=== PATIENT | female | born 1935 | race Caucasian/White ===

== ENCOUNTER 2020-09-28 19:06 | Emergency (ER) | payer MEDICARE, OTHER ==
[~2020-09-28] VITALS: Ht 157.5 cm; Wt 61.0 kg
[2020-09-28 20:09] LABS: HEMATOCRIT 39.7 % (37.0-47.0); HEMOGLOBIN 12.8 g/dl (12.0-16.0); IMMATURE GRANULOCYTES 0.5 % (0.0-5.0); MEAN CELL VOLUME 91.5 fL CALC (80.0-100.0); MEAN CORPUSCULAR HGB 29.5 pG CALC (26.0-32.0); MEAN CORPUSCULAR HGB CONC 32.2 g/dL CAL (32.0-36.0); NEUT# 11.94 thou/uL (2.00-7.15); RED BLOOD COUNT 4.34 mill/uL (4.20-5.60); RED CELL DISTRI WIDTH 13.2 % (11.5-15.5)
[2020-09-28 21:13] LABS: ALBUMIN 3.4 g/dL (3.2-5.0); ALKALINE PHOSPHATASE 93 u/l (38-126); AMYLASE 59 u/l (30-110); BILIRUBIN, TOTAL 0.7 mg/dL (0.0-1.4); BUN 9 mg/dL (8-23); BUN/CREATININE RATIO 11 (12-20 (CALC)); CARBON DIOXIDE 27 mmol/l (22-30); CHLORIDE 97 mmol/l (95-108); CREATININE 0.9 mg/dL (0.5-1.0); GFR 60 ML/MIN (>=60 (CALC)); GFR FOR AFR.AMER. > 60 ML/MIN (>=60 (CALC)); LIPASE 31 u/l (23-300); SGOT/AST 29 u/l (9-36); TOTAL PROTEIN 6.4 g/dL (6.3-8.2)
[2020-09-28 21:14] LABS: D-DIMER 0.8 mg/L (0.19-0.60)
[2020-09-28 21:19] LABS: ACT PARTIAL THROMBO TIME 25.2 SECONDS (20.0-32.5); INTERNATIONAL NORMALIZED RATIO 1.1 RATIO (0.7-1.3); PROTHROMBIN TIME 10.6 SECONDS (9.0-12.5)
[2020-09-28 21:25] LABS: MYOGLOBIN 84 ng/mL (0 - 62)
[2020-09-28 21:30] LABS: ANION GAP 9 (6-22 (CALC)); POTASSIUM 3.8 mmol/l (3.5-5.1); SODIUM 129 mmol/l (137-146)
[2020-09-29 00:59] LABS: URINE BILIRUBIN - DIPSTICK NEGATIVE (NEGATIVE); URINE BLOOD DIPSTICK LARGE (NEGATIVE); URINE COLOR BROWN; URINE GLUCOSE - DIPSTICK NEGATIVE (NEGATIVE); URINE KETONE NEGATIVE (NEGATIVE); URINE NITRITE - DIPSTICK NEGATIVE (Negative); URINE PROTEIN - DIPSTICK 100 mg/dL (NEG-TRACE); URINE SPECIFIC GRAVITY 1.015; URINE UROBILINOGEN - DIPSTICK 0.2 E.U./dL (0.2)
[2020-09-29 01:01] LABS: URINE LEUK ESTERASE MODERATE (NEGATIVE)
[2020-09-29 01:27] LABS: URINE BACTERIA MANY hpf; URINE RBC 25-50 RBC/hpf (0-5); URINE SQUAMOUS EPITHELIAL CELL FEW EPI/hpf (0-FEW); URINE WBC 50-100 WBC/hpf (0-5)
[2020-09-29 03:23] VITALS: BP 101/63
== END 2020-09-29 03:22 | disposition short-term general hospital (02) ==
LOC: ED 19:06
PROVIDERS: Family Medicine
DX: R07.9 Chest pain, unspecified (principal); R79.89 Other specified abnormal findings of blood chemistry; E03.9 Hypothyroidism, unspecified; Z20.828 Contact with and (suspected) exposure to other viral communicable diseases
CPT/HCPCS: Q9967

== ENCOUNTER 2020-10-04 11:36 | Emergency (ER) | payer MEDICARE, OTHER ==
[~2020-10-04] VITALS: Ht 157.5 cm; Wt 61.0 kg
[2020-10-04] MEDS ORDERED: ASPIRIN ADULT L81 MG PO (11:45)
[2020-10-04] MEDS ORDERED: LIPITOR40 M1 PO (11:46)
[2020-10-04] MEDS ORDERED: CARVEDILOL3.125 MG PO (11:46)
[2020-10-04] MEDS ORDERED: BACTRIM DS1 TAB PO (11:47)
[2020-10-04] MEDS ORDERED: BRILINTA90 MG PO (11:47)
[2020-10-04] MEDS ORDERED: LEVOTHYROXIN125 MCG PO (11:47)
[2020-10-04 12:29] LABS: HEMATOCRIT 34.4 % (37.0-47.0); HEMOGLOBIN 10.9 g/dl (12.0-16.0); IMMATURE GRANULOCYTES 0.9 % (0.0-5.0); MEAN CELL VOLUME 90.3 fL CALC (80.0-100.0); MEAN CORPUSCULAR HGB 28.6 pG CALC (26.0-32.0); MEAN CORPUSCULAR HGB CONC 31.7 g/dL CAL (32.0-36.0); NEUT# 11.35 thou/uL (2.00-7.15); RED BLOOD COUNT 3.81 mill/uL (4.20-5.60); RED CELL DISTRI WIDTH 13.2 % (11.5-15.5)
[2020-10-04 12:31] LABS: ALBUMIN 3.4 g/dL (3.2-5.0); POTASSIUM 4.3 mmol/l (3.5-5.1); TOTAL PROTEIN 6.2 g/dL (6.3-8.2)
[2020-10-04 12:33] LABS: BILIRUBIN, TOTAL 0.4 mg/dL (0.0-1.4); CREATININE 2.1 mg/dL (0.5-1.0)
[2020-10-04 12:57] LABS: INTERNATIONAL NORMALIZED RATIO 1.1 RATIO (0.7-1.3); PROTHROMBIN TIME 10.9 SECONDS (9.0-12.5)
[2020-10-04 13:21] LABS: URINE BLOOD DIPSTICK LARGE (NEGATIVE); URINE GLUCOSE - DIPSTICK NEGATIVE (NEGATIVE); URINE KETONE TRACE mg/dL (NEGATIVE); URINE PH 7.5 (4.5-8.0); URINE PROTEIN - DIPSTICK 100 mg/dL (NEG-TRACE); URINE SPECIFIC GRAVITY 1.025; URINE UROBILINOGEN - DIPSTICK 0.2 E.U./dL (0.2)
[2020-10-04 13:22] LABS: URINE BILIRUBIN - DIPSTICK MODERATE (NEGATIVE); URINE COLOR BROWN; URINE LEUK ESTERASE MODERATE (NEGATIVE); URINE NITRITE - DIPSTICK POSITIVE (Negative); URINE RBC TNTC RBC/hpf (0-5)
[2020-10-04 13:23] LABS: URINE BACTERIA FEW hpf; URINE EPITHELIAL CELLS FEW EPI/hpf (0-FEW)
[2020-10-04 14:40] VITALS: BP 109/51
== END 2020-10-04 15:03 | disposition short-term general hospital (02) ==
LOC: ED 11:36
PROVIDERS: Family Medicine
DX: R31.9 Hematuria, unspecified (principal); N17.9 Acute kidney failure, unspecified; I25.10 Atherosclerotic heart disease of native coronary artery without angina pectoris; E03.9 Hypothyroidism, unspecified; I25.2 Old myocardial infarction; Z95.5 Presence of coronary angioplasty implant and graft; Z87.440 Personal history of urinary (tract) infections; Z79.02 Long term (current) use of antithrombotics/antiplatelets

== ENCOUNTER 2020-11-25 07:46 | Observation (INO) | payer MEDICARE, OTHER ==
[~2020-11-25] VITALS: Ht 157.5 cm; Wt 60.1 kg
[~2020-11-25 07:46] MED LIST: ASPIRIN ADULT L81 MG PO; BACTRIM DS1 TAB PO; BRILINTA90 MG PO; CARVEDILOL3.125 MG PO; LEVOTHYROXIN125 MCG PO; LIPITOR40 M1 PO
--- NOTE | 2020-11-25 07:47 | NUR ---
PT TO ROOM 13 VIA WC. ABLE TO STAND AND TRANSFER SELF TO STRETCHER.
[2020-11-25] MEDS ORDERED: TRAZODONE50 MG PO (08:13)
--- NOTE | 2020-11-25 08:23 | NUR ---
REGISTRATION AT BEDSIDE PT RESTING ON STRETCHER, NO COMPLAINTS OF PAIN, CALL [facility] WITHIN REACH. DAUGHTER AT BEDSIDE.
[2020-11-25 08:30] LABS: HEMATOCRIT 33.6 % (37.0-47.0); HEMOGLOBIN 10.6 g/dl (12.0-16.0); IMMATURE GRANULOCYTES 0.5 % (0.0-5.0); MEAN CELL VOLUME 92.6 fL CALC (80.0-100.0); MEAN CORPUSCULAR HGB 29.2 pG CALC (26.0-32.0); MEAN CORPUSCULAR HGB CONC 31.5 g/dL CAL (32.0-36.0); NEUT# 10.82 thou/uL (2.00-7.15); RED BLOOD COUNT 3.63 mill/uL (4.20-5.60); RED CELL DISTRI WIDTH 14.6 % (11.5-15.5)
[2020-11-25 08:44] LABS: ALBUMIN 2.8 g/dL (3.2-5.0); ALKALINE PHOSPHATASE 111 u/l (38-126); ANION GAP 8 (6-22 (CALC)); BUN 14 mg/dL (8-23); CARBON DIOXIDE 27 mmol/l (22-30); CHLORIDE 101 mmol/l (95-108); LIPASE 27 u/l (23-300); POTASSIUM 3.8 mmol/l (3.5-5.1); SGOT/AST 24 u/l (9-36); SODIUM 133 mmol/l (137-146); TOTAL PROTEIN 5.8 g/dL (6.3-8.2)
[2020-11-25 08:48] LABS: BILIRUBIN, TOTAL 0.7 mg/dL (0.0-1.4); BUN/CREATININE RATIO 20 (12-20 (CALC)); CREATININE 0.7 mg/dL (0.5-1.0); GFR > 60 ML/MIN (>=60 (CALC)); GFR FOR AFR.AMER. > 60 ML/MIN (>=60 (CALC))
[2020-11-25 08:56] LABS: ACT PARTIAL THROMBO TIME 23.6 SECONDS (20.0-32.5); PROTHROMBIN TIME 10.4 SECONDS (9.0-12.5)
--- NOTE | 2020-11-25 08:58 | NUR ---
PT RESTING DECLINES ANY NEEDS AT THIS TIME, AWARE OF AWAITING LAB RESULTS ETC...DAUGHTER REMAINS AT BEDSIDE, CALL [facility] WITHIN REACH.
--- NOTE | 2020-11-25 10:36 | NUR ---
PATIENT RESTING QUIETLY. NO DISTRESS. DAUGHTER AT BEDSIDE. CALL [facility] IN REACH
[2020-11-25 11:10] LABS: URINE BILIRUBIN - DIPSTICK NEGATIVE (NEGATIVE); URINE BLOOD DIPSTICK LARGE (NEGATIVE); URINE COLOR YELLOW; URINE GLUCOSE - DIPSTICK NEGATIVE (NEGATIVE); URINE KETONE TRACE mg/dL (NEGATIVE); URINE LEUK ESTERASE SMALL (NEGATIVE); URINE NITRITE - DIPSTICK NEGATIVE (Negative); URINE PH 7.5 (4.5-8.0); URINE PROTEIN - DIPSTICK 30 mg/dL (NEG-TRACE); URINE UROBILINOGEN - DIPSTICK 0.2 E.U./dL (0.2); URINE WBC 20-50 WBC/hpf (0-5)
[2020-11-25 11:11] LABS: URINE BACTERIA MODERATE hpf; URINE EPITHELIAL CELLS MODERATE EPI/hpf (0-FEW)
--- NOTE | 2020-11-25 11:30 | NUR ---
physician to bedside to discuss results and admission.
[2020-11-25 12:23] LABS: TSH, 3RD GENERATION 0.14 uIU/mL (0.47 - 4.68)
--- NOTE | 2020-11-25 12:34 | NUR ---
patient awaiting room . No distress.
--- NOTE | 2020-11-25 12:51 | NUR ---
report in sbar format to loren lunsford.
--- NOTE | 2020-11-25 12:57 | NUR ---
PT ARRIVED VIA WC ACCOMPANIED BY Mary RUEDA RN. A&O X3. NO DISTRESS NOTED. PT DENIES ANY PAIN OR SOB AT THIS TIME. CURRENTLY 94-95% VIA RA, WILL CONTINUE TO MONITOR FOR SUPPLEMENTAL O2 NEEDS. #20 LAC HEALTHY AND INTACT, FLUSHED WITH EASE. CONSOLE ASSEMBLER IN PLACE #8621 WITH INITIAL READING AT SR 87 PER ED MONITORING. [facility] OFFERED BUT REFUSED. PT INSTRUCTED TO CALL WHEN AMBULATING TO BATHROOM FOR FALL PERCAUTIONS. UPPER DENTURES IN PLACES REPORTED BY PATIENT. ASSESSMENT COMPLETED. ORIENTED PT TO ROOM. DISCUSSED POC. CALL LIGHT LEFT WITHIN REACH.
--- NOTE | 2020-11-25 13:02 | NUR ---
to room 270 via wc. stable upon arrival. iv intact
[2020-11-25 15:00] VITALS: BP 102/46
--- NOTE | 2020-11-25 15:53 | NUR ---
PT screen Patient is screened for rehab intervention and no needs are identified at this time
--- NOTE | 2020-11-25 16:13 | NUR ---
PT CONSENTED TO [facility] BUT HAS HAD BOTH SINCE AGE 67, NO FDURTHER [facility] INDICATED. JOAO AWARE
--- NOTE | 2020-11-25 17:17 | NUR ---
PT C/O OF LAW. TYLENOL GIVEN. WILL REASSESS.
[2020-11-25 20:00] VITALS: BP 98/58
--- NOTE | 2020-11-25 20:00 | NUR ---
PT APPEARS TO BE SLEEPING, EASY TO AROUSE. NO COMPLAINTS OF DISCOMFORT OR PAIN. CURRENTLY NO EDEMA ASSESSED, LUNGS ARE CLEAR IN ALL [place]. ONLY COMPLAINT IS THAT SHE IS READY TO GO HOME. NURSE ASSURED HER THAT THE DOCTOR WANTS TO MAKE SURE SHE IS WELL ENOUGH TO GO HOME AND THEY WOULD MAKE THAT DECISION IN THE MORNING. PT WAS SATISFIED WITH THE INFORMATION AND WENT BACK TO SLEEP. CALL LIGHT AND BELONGINGS WITHIN REACH.
[2020-11-26] VITALS: BP 105/61
--- NOTE | 2020-11-26 | NUR ---
NURSE WENT TO CHECK ON PT AND SHE WAS AWAKE. PT STATED SHE WAS READY TO GO HOME, NURSE EDUCATED HER THAT IT IS THE MIDDLE OF THE NIGHT AND THE DOCTOR WOULD BE HERE IN THE MORNING. PT HAD COMPLAINT OF ITCHING, OFFERED HER SOME LOTION HER SKIN LOOKED VERY DRY, POSSIBLY DUE TO DIURETICS. AT FIRST SHE DECLINED AND SHORT TIME LATER SHE COMPLAINED AGAIN TO JIVE DEVELOPER, NURSE WENT AND OFFERED AGAIN. SHE AGREED AND NURSE HELPED PUT SOME ON HER ARMS AND LEGS. SHE SEEMS CONTENT, WILL CHECK HER LATER IF RESOLVED.
[2020-11-26 03:45] VITALS: BP 88/48; BP 99/63
--- NOTE | 2020-11-26 04:00 | NUR ---
PT RESTING ON HER SIDE WITH EYES CLOSED APPEARS TO BE SLEEPING. WHEN AWAKENED TO ASK HOW SHE IS FEELING, SHE ONLY COMMENTS "I WOULD BE BETTER IF I WAS HOME." DENIES DISCOMFORT OR SOB. WILL CONTINUE TO MONITOR.
[2020-11-26 05:14] LABS: HEMATOCRIT 37.3 % (37.0-47.0); HEMOGLOBIN 11.8 g/dl (12.0-16.0); IMMATURE GRANULOCYTES 0.5 % (0.0-5.0); MEAN CELL VOLUME 91.4 fL CALC (80.0-100.0); MEAN CORPUSCULAR HGB 28.9 pG CALC (26.0-32.0); MEAN CORPUSCULAR HGB CONC 31.6 g/dL CAL (32.0-36.0); NEUT# 12.52 thou/uL (2.00-7.15); RED BLOOD COUNT 4.08 mill/uL (4.20-5.60); RED CELL DISTRI WIDTH 14.8 % (11.5-15.5)
[2020-11-26 05:45] LABS: ALBUMIN 2.6 g/dL (3.2-5.0); ALKALINE PHOSPHATASE 111 u/l (38-126); ANION GAP 11 (6-22 (CALC)); BUN 14 mg/dL (8-23); BUN/CREATININE RATIO 18 (12-20 (CALC)); CALCULATED LDLCHOLESTEROL 33 mg/dL (62-129 (CALC)); CARBON DIOXIDE 27 mmol/l (22-30); CHLORIDE 98 mmol/l (95-108); CHOLESTEROL HDL RATIO 2.4 (<4.4 (CALC)); CREATININE 0.8 mg/dL (0.5-1.0); GFR > 60 ML/MIN (>=60 (CALC)); GFR FOR AFR.AMER. > 60 ML/MIN (>=60 (CALC)); HDL CHOLESTEROL 36 mg/dL (>=40); MAGNESIUM 1.9 mg/dL (1.6-2.3); POTASSIUM 3.5 mmol/l (3.5-5.1); SGOT/AST 22 u/l (9-36); SODIUM 133 mmol/l (137-146); TOTAL PROTEIN 5.5 g/dL (6.3-8.2); TOTAL TRIGLYCERIDES 91 mg/dl (30-149); VLDL CHOLESTROL 18 mg/dl (0-48 (CALC))
[2020-11-26 05:46] LABS: TOTAL CHOLESTEROL 87 mg/dl (0-199)
[2020-11-26 07:37] VITALS: BP 102/63
--- NOTE | 2020-11-26 07:37 | NUR ---
PATIENT SITTING UP AT BEDSIDE STATING "I WANT TO GO HOME TODAY I AM FINE". PATIENT IS ALERT AND ORIENTED X 3 CALL LIGHT NEAR AND SIDERAILS UP X 2. PATIENT AIR TESTER DONE AT THIS TIME SEE INTERVENTIONS. NO SIGNS OF EDEMA NOTED ON BODY AT THIS TIME. PATIENT DENIES ANY PAIN AND OR NEEDS.
[2020-11-26 10:30] VITALS: BP 95/55
--- NOTE | 2020-11-26 11:58 | NUR ---
PATIENT SITTING AT BEDSIDE EATING LUNCH AT THIS TIME. SIDERAILS UP X 2 CALL LIGHT WITHIN REACH. PATIENT DENIES ANY PAIN OR NEEDS AT THIS TIME.
[2020-11-26] MEDS ORDERED: ZITHROMAX Z-PA250 MG PO (13:32)
[2020-11-26] MEDS ORDERED: FUROSEMIDE20 MG PO (13:37)
--- NOTE | 2020-11-26 13:37 | NUR ---
TRANSFER PATIENT CARE TO [facility] AT THIS TIME. PATIENT IS IN STABLE CONDITION AND AWAITING D/C ORDERS.
--- NOTE | 2020-11-26 13:37 | NUR ---
REPORT RECEIVED FROM EUGENE ROSE.
--- NOTE | 2020-11-26 15:03 | NUR ---
Discharge instructions given. Patient verbalizes understanding of same. Discharged in stable condition via Wheelchair to Home with staff. All belongings sent with pt.
--- NOTE | 2020-11-29 14:16 | NUR ---
Pneumonia follow up call completed today. Spoke with patient's daughter in law. States pt. is doing reasonably well. She has had no fever or SOB, but has had frequent chills since discharge. Pt. is taking medication prescribed at discharge,without issue. Trudy in law is trying to schedule follow up appt for patient. Waiting on a return call from PCP. No questions or concerns expressed by IDL. Appreciative of call.
== END 2020-11-26 15:03 | disposition home or self-care (01) ==
LOC: ED 07:46 → ED-I 11:00 → ED 11:07 → MS2 11:08
PROVIDERS: Nurse Practitioner; ADMIT Internal Medicine; ATTEND Internal Medicine
DX: I11.0 Hypertensive heart disease with heart failure (principal); I50.9 Heart failure, unspecified; C67.9 Malignant neoplasm of bladder, unspecified; J44.9 Chronic obstructive pulmonary disease, unspecified; E03.9 Hypothyroidism, unspecified; E78.5 Hyperlipidemia, unspecified; G31.84 Mild cognitive impairment of uncertain or unknown etiology; R31.9 Hematuria, unspecified; I25.2 Old myocardial infarction; Z95.5 Presence of coronary angioplasty implant and graft; Z20.822 Contact with and (suspected) exposure to COVID-19
CPT/HCPCS: Q9967

== ENCOUNTER 2021-01-08 | Inpatient (IN) | payer MEDICARE, OTHER ==
[2021-01-07 15:41] LABS: HEMATOCRIT 29.8 % (37.0-47.0); HEMOGLOBIN 9.6 g/dl (12.0-16.0); IMMATURE GRANULOCYTES 19.8 % (0.0-5.0); MEAN CELL VOLUME 91.7 fL CALC (80.0-100.0); MEAN CORPUSCULAR HGB 29.5 pG CALC (26.0-32.0); MEAN CORPUSCULAR HGB CONC 32.2 g/dL CAL (32.0-36.0); NEUT# 20.38 thou/uL (2.00-7.15); RED BLOOD COUNT 3.25 mill/uL (4.20-5.60); RED CELL DISTRI WIDTH 16.5 % (11.5-15.5)
[2021-01-07 16:00] LABS: ALBUMIN 2.4 g/dL (3.2-5.0); ALKALINE PHOSPHATASE 152 u/l (38-126); ANION GAP 6 (6-22 (CALC)); BILIRUBIN, TOTAL 0.8 mg/dL (0.0-1.4); BUN 18 mg/dL (8-23); BUN/CREATININE RATIO 18 (12-20 (CALC)); CARBON DIOXIDE 27 mmol/l (22-30); CHLORIDE 104 mmol/l (95-108); GFR 53 ML/MIN (>=60 (CALC)); GFR FOR AFR.AMER. > 60 ML/MIN (>=60 (CALC)); POTASSIUM 3.6 mmol/l (3.5-5.1); SGOT/AST 37 u/l (9-36); SODIUM 133 mmol/l (137-146); TOTAL PROTEIN 5.4 g/dL (6.3-8.2)
[2021-01-07 18:02] LABS: URINE BILIRUBIN - DIPSTICK NEGATIVE (NEGATIVE); URINE BLOOD DIPSTICK LARGE (NEGATIVE); URINE COLOR YELLOW; URINE GLUCOSE - DIPSTICK NEGATIVE (NEGATIVE); URINE KETONE TRACE mg/dL (NEGATIVE); URINE PROTEIN - DIPSTICK 100 mg/dL (NEG-TRACE); URINE UROBILINOGEN - DIPSTICK 0.2 E.U./dL (0.2)
[2021-01-07 18:03] LABS: URINE LEUK ESTERASE SMALL (NEGATIVE); URINE NITRITE - DIPSTICK NEGATIVE (Negative)
[2021-01-07 18:09] LABS: URINE BACTERIA MANY hpf; URINE WBC TNTC WBC/hpf (0-5)
[2021-01-07 20:15] VITALS: BP 114/63
[2021-01-08] VITALS (8 sets, daily range): BP systolic 94–115; BP diastolic 37–64
[~2021-01-08] MED LIST changes: +COMPAZINE10 MG PO; +FUROSEMIDE20 MG PO; +TESSALON PER100 MG PO; +TRAZODONE50 MG PO; +ZITHROMAX Z-PA250 MG PO
[2021-01-08 06:36] LABS: HEMATOCRIT 29.2 % (37.0-47.0); HEMOGLOBIN 9.2 g/dl (12.0-16.0); MEAN CELL VOLUME 93.3 fL CALC (80.0-100.0); MEAN CORPUSCULAR HGB 29.4 pG CALC (26.0-32.0); MEAN CORPUSCULAR HGB CONC 31.5 g/dL CAL (32.0-36.0); PLATELET COUNT 369 thou/uL (130-400); RED BLOOD COUNT 3.13 mill/uL (4.20-5.60); RED CELL DISTRI WIDTH 16.3 % (11.5-15.5)
[2021-01-08 06:39] LABS: IMMATURE GRANULOCYTES 16.2 % (0.0-5.0); MANUAL DIFFERENTIAL YES
[2021-01-08 06:45] LABS: ALBUMIN 2.1 g/dL (3.2-5.0); ALKALINE PHOSPHATASE 140 u/l (38-126); ANION GAP 10 (6-22 (CALC)); BILIRUBIN, TOTAL 0.6 mg/dL (0.0-1.4); BUN 17 mg/dL (8-23); BUN/CREATININE RATIO 17 (12-20 (CALC)); CARBON DIOXIDE 24 mmol/l (22-30); CHLORIDE 106 mmol/l (95-108); GFR 53 ML/MIN (>=60 (CALC)); GFR FOR AFR.AMER. > 60 ML/MIN (>=60 (CALC)); POTASSIUM 3.7 mmol/l (3.5-5.1); SGOT/AST 27 u/l (9-36); SODIUM 136 mmol/l (137-146); TOTAL PROTEIN 4.7 g/dL (6.3-8.2)
[2021-01-08 07:12] LABS: BAND 4 % (0-8)
[2021-01-08 08:45] LABS: INTERNATIONAL NORMALIZED RATIO 1.2 RATIO (0.7-1.3); PROTHROMBIN TIME 12.6 SECONDS (9.0-12.5)
[2021-01-09 04:00] VITALS: BP 112/65
[2021-01-09 05:46] LABS: HEMATOCRIT 29.9 % (37.0-47.0); HEMOGLOBIN 9.3 g/dl (12.0-16.0); MEAN CELL VOLUME 94.6 fL CALC (80.0-100.0); MEAN CORPUSCULAR HGB 29.4 pG CALC (26.0-32.0); MEAN CORPUSCULAR HGB CONC 31.1 g/dL CAL (32.0-36.0); PLATELET COUNT 356 thou/uL (130-400); RED BLOOD COUNT 3.16 mill/uL (4.20-5.60); RED CELL DISTRI WIDTH 17.4 % (11.5-15.5)
[2021-01-09 05:58] LABS: ALBUMIN 2.2 g/dL (3.2-5.0); BILIRUBIN, TOTAL 0.7 mg/dL (0.0-1.4); CREATININE 1.2 mg/dL (0.5-1.0); POTASSIUM 3.3 mmol/l (3.5-5.1); TOTAL PROTEIN 4.8 g/dL (6.3-8.2)
[2021-01-09 06:12] LABS: IMMATURE GRANULOCYTES 17.5 % (0.0-5.0); MANUAL DIFFERENTIAL YES
[2021-01-09 07:00] VITALS: BP 102/62
[2021-01-09 07:05] LABS: BAND 5 % (0-8)
[2021-01-09 10:30] VITALS: BP 96/56
[2021-01-09 15:35] VITALS: BP 104/54
[2021-01-09 19:00] VITALS: BP 95/57
[2021-01-10] VITALS (7 sets, daily range): BP systolic 91–138; BP diastolic 56–77
[2021-01-10 05:40] LABS: HEMATOCRIT 29.7 % (37.0-47.0); HEMOGLOBIN 9.1 g/dl (12.0-16.0); MEAN CELL VOLUME 95.5 fL CALC (80.0-100.0); MEAN CORPUSCULAR HGB 29.3 pG CALC (26.0-32.0); MEAN CORPUSCULAR HGB CONC 30.6 g/dL CAL (32.0-36.0); RED BLOOD COUNT 3.11 mill/uL (4.20-5.60)
[2021-01-10 05:58] LABS: CREATININE 1.2 mg/dL (0.5-1.0); MAGNESIUM 1.8 mg/dL (1.6-2.3); POTASSIUM 3.2 mmol/l (3.5-5.1)
[2021-01-11 04:49] VITALS: BP 105/56
[2021-01-11 06:08] LABS: HEMATOCRIT 28.2 % (37.0-47.0); HEMOGLOBIN 8.8 g/dl (12.0-16.0); MEAN CELL VOLUME 95.3 fL CALC (80.0-100.0); MEAN CORPUSCULAR HGB 29.7 pG CALC (26.0-32.0); MEAN CORPUSCULAR HGB CONC 31.2 g/dL CAL (32.0-36.0); RED BLOOD COUNT 2.96 mill/uL (4.20-5.60); RED CELL DISTRI WIDTH 19.2 % (11.5-15.5)
[2021-01-11 06:46] LABS: CREATININE 1.2 mg/dL (0.5-1.0); MAGNESIUM 1.7 mg/dL (1.6-2.3); POTASSIUM 2.9 mmol/l (3.5-5.1)
[2021-01-11 07:25] VITALS: BP 99/56
[2021-01-11 10:20] VITALS: BP 96/59
[2021-01-11] MEDS ORDERED: AMOX/K CLAV875 M1 PO (12:05)
[2021-01-11] MEDS ORDERED: FUROSEMIDE20 MG PO (12:07)
[2021-01-11] MEDS ORDERED: POT CHLORIDE20 ME2 PO (12:07)
[2021-01-11 15:38] VITALS: BP 92/57
== END 2021-01-11 16:52 | DRG 690 ==
PROVIDERS: Family Medicine; Nurse Practitioner; Nurse Practitioner Family; ADMIT Internal Medicine
DX: N39.0 Urinary tract infection, site not specified (principal); R09.02 Hypoxemia; I11.0 Hypertensive heart disease with heart failure; I50.9 Heart failure, unspecified; C67.9 Malignant neoplasm of bladder, unspecified; E87.6 Hypokalemia; E03.9 Hypothyroidism, unspecified; E78.5 Hyperlipidemia, unspecified; F03.90 Unspecified dementia, unspecified severity, without behavioral disturbance, psychotic disturbance, mood disturbance, and anxiety; B95.2 Enterococcus as the cause of diseases classified elsewhere; Z86.16 Personal history of COVID-19; Z79.899 Other long term (current) drug therapy; Z20.822 Contact with and (suspected) exposure to COVID-19
CPT/HCPCS: G0378; J1650; J3370; J3475; Q3014; Q9967